=== PATIENT | male | born 1955 | race Caucasian/White ===

== ENCOUNTER 2019-09-24 09:10 | Day surgery (SDC) | payer BC, OTHER ==
[~2019-09-24 09:10] MED LIST: Lactated Ringers 1,000 ML IV SCH; Sodium Chloride 0.9% 10 ML Syringe FLUSH PRN
[2019-09-24] MEDS ORDERED: Propofol 200 MG/20 ML SDV IV ONE (09:11)
[2019-09-24] MEDS ORDERED: Midazolam 1 MG/ML 2 ML SDV IV ONE (09:11)
--- NOTE | 2019-09-24 10:50 | PCM.OPNOTE ---
- General Post-Op/Procedure Note Date of Surgery/Procedure: 09/24/19 Operative Procedure(s): c scope with biopsy Findings: sigmoid diverticulosis rectal mass Pre Op Diagnosis: bleeding per rectum Post-Op Diagnosis: rectal mass. sigmoid diverticulosis Anesthesia Technique: MAC Primary Surgeon: Adelso Quijano Anesthesia Provider: Priti Moreno Pathology: rectal mass Complications: None Condition: Good Free Text/Narrative:: see dictation
--- NOTE | 2019-09-24 14:23 | OR ---
DATE OF OPERATION: 09/24/2019 SURGEON: Adelso Quijano MD PROCEDURE PERFORMED: Colonoscopy with cold forceps biopsy. PREOPERATIVE DIAGNOSES: Bleeding per rectum, family history of colon cancer. POSTOPERATIVE DIAGNOSIS: Mass, proximal rectum, rectosigmoid junction. INDICATIONS FOR PROCEDURE: This is a 64-year-old white male whose last scope was in 2003, has a family history of colon cancer with a first-degree relative, his brother. He has had a several-year history of bleeding per rectum, it has gotten progressively worse. He was offered and accepted colonoscopy. DESCRIPTION OF OPERATION: After an excellent IV sedation was administered, digital rectal exam was performed. No marked abnormality was noted. Flexible colonoscope was inserted and advanced to the cecum. Prep was excellent. The following findings were noted. Ascending colon, unremarkable. Transverse colon, unremarkable. Descending colon, occasional diverticula. Sigmoid, occasional diverticula. Rectum, at the proximal rectum, possibly the rectosigmoid junction measured approximately 20 cm. There was a mass that involved approximately a 3rd of the sidewall. Multiple biopsies were taken as well as photo. Remainder of the rectum was unremarkable. The patient tolerated the procedure well, was taken to recovery room in good condition. /[id number] /ELICEO
== END 2019-09-24 11:46 | disposition home or self-care (01) ==
LOC: FB.SDS 09:10
PROVIDERS: ATTEND Surgery
DX: C19 Malignant neoplasm of rectosigmoid junction (principal); K57.30 Diverticulosis of large intestine without perforation or abscess without bleeding; E66.9 Obesity, unspecified; Z68.41 Body mass index [BMI] 40.0-44.9, adult; Z80.0 Family history of malignant neoplasm of digestive organs
CPT/HCPCS: 45380; 88305; J2250; J2704; J7120

== ENCOUNTER 2021-07-27 19:32 | Emergency (ER) | payer OTHER, MEDICARE | END 2021-07-27 21:05 | disposition home or self-care (01) | LOC: FB.ED 19:32 | DX: S09.90XA Unspecified injury of head, initial encounter (principal); S19.9XXA Unspecified injury of neck, initial encounter; S09.93XA Unspecified injury of face, initial encounter; E66.9 Obesity, unspecified; Z68.37 Body mass index [BMI] 37.0-37.9, adult; W01.198A Fall on same level from slipping, tripping and stumbling with subsequent striking against other object, initial encounter | CPT/HCPCS: 70450; 99283-25 ==